=== PATIENT | female | born 1950 | race Caucasian/White ===

== ENCOUNTER 2017-05-22 02:15 | Observation (INO) | payer MEDICARE, BC, OTHER ==
[~2017-05-22] VITALS: Ht 167.6 cm; Wt 100.0 kg
[2017-05-22] VITALS (9 sets, daily range): BP systolic 126–195; BP diastolic 58–93; PULSE 74–115; RESP 16–21; TEMP 97.8–98.5; O2SAT 90–98
[~2017-05-22 02:15] MED LIST: ATEN-100 PO; CLON1 PO; SERT50 PO
[2017-05-22] MEDS ORDERED: ATEN25TA PO (02:41)
[2017-05-22] MEDS ORDERED: METF500T PO (02:41)
[2017-05-22] MEDS ORDERED: PRED10PA PO (02:41)
[2017-05-22] MEDS ORDERED: AUGM875T3 PO (02:41)
[2017-05-22] MEDS ORDERED: SODIUM CHLORID 0.9% 500 ML INJ 500 ML IV ONE (02:45)
[2017-05-22] MEDS ORDERED: NITROGLYCERIN 0.4 MG SL 25 TABS/BTL SL ONE (02:45)
[2017-05-22] MEDS ORDERED: SODIUM CHLORIDE 0.9% FLUSH 10 ML FLUSH IVF PRN (02:45)
[2017-05-22] MEDS ORDERED: ASPIRIN 81 MG CHEW TAB PO ONE (02:45)
--- NOTE | 2017-05-22 02:48 | PD ---
HPI Chief Complaint: Chest Pain Time Seen by Provider: 02:34 Travel History International Travel<30 days: No Contact w/Intl Traveler<30days: No Traveled to known affect area: No History of Present Illness HPI The patient is a 67-year-old female who presents to the emergency department for chest pain. The patient notes a three-week history of sinus infection, was treated with amoxicillin, however, continue to have facial pain, postnasal drip, congestion. The patient saw her physician once again who prescribed Augmentin and gave her an injection of Solu-Medrol place her on prednisone. The patient states the congestion got better, however, earlier tonight she developed chest pain. The chest pain is substernal, nonradiating, sharp to pressure related, and associated shortness of breath. The patient denies any known history of coronary artery disease, does have a history of atrial fibrillation but underwent cardiac ablation several years ago. The patient does have a history of diabetes and atrial fibrillation, however, denies any history of hypertension, hyperlipidemia, or tobacco use. Symptoms are moderate, there are no alleviating or exacerbating factors. She denies any associated nausea, vomiting, or diaphoresis. The patient denies any known history of pulmonary embolism or DVT. PFSH Past Medical History Atrial Fibrillation: Yes Cardiovascular Problems: Yes (A-FIB) Diabetes: Yes Patient Takes Glucophage: Yes Diminished Hearing: No GERD: Yes Tetanus Vaccination: > 5 Years Influenza Vaccination: No Ovarian Cysts: Yes (X1) Past Surgical History Cardiac Surgery: Yes (ABLASION) Section: Yes (X1) Genitourinary Surgery: Yes Other Surgery: Yes (DEVIATED SEPTUM ) Social History Alcohol Use: Yes Tobacco Use: No Substance Use: No Allergies-Medications (Allergen,Severity, Reaction): Coded Allergies: amiodarone (Unverified Allergy, Severe, 03/30/17) diatrizoate meglumine (Unverified Allergy, Severe, 03/30/17) flecainide (Unverified Allergy, Severe, 03/30/17) gadobenic acid (Unverified Allergy, Severe, 03/30/17) gadodiamide (Unverified Allergy, Severe, 03/30/17) gadoteridol (Unverified Allergy, Severe, 03/30/17) iodixanol (Unverified Allergy, Severe, 03/30/17) iohexol (Unverified Allergy, Severe, 03/30/17) Reported Meds & Prescriptions Reported Meds & Active Scripts Active Reported Prednisone (21) 10 mg tab Dose Pack (Prednisone) 10 Mg Pack 10 Mg PO DIRECTED Augmentin (Amoxicillin-Clavulanate) 875-125 Mg Tab 1 Tab PO BID Metformin (Metformin HCl) 500 Mg Tab 500 Mg PO BIDPC Atenolol 25 Mg Tab 25 Mg PO DAILY Review of Systems Except as stated in HPI: all other systems reviewed are Neg General / Constitutional: No: Fever HENT: No: Lightheadedness Cardiovascular: Positive: Chest Pain or Discomfort, No: Diaphoresis, Dyspnea on exertion Respiratory: Positive: Shortness of Breath Gastrointestinal: No: Nausea, Vomiting Musculoskeletal: No: Edema Physical Exam Narrative GENERAL: Awake, alert, pleasant 67-year-old female who appears her stated age and is in no acute respiratory distress. SKIN: Focused skin assessment warm/dry. HEAD: Atraumatic. Normocephalic. EYES: Pupils equal and round. No scleral icterus. No injection or drainage. ENT: No nasal bleeding or discharge. Cobblestoning noted in posterior oropharynx noted. NECK: Trachea midline. No JVD. CARDIOVASCULAR: Regular, tachycardic with a heart rate of 105. RESPIRATORY: No accessory muscle use. Clear to auscultation. Breath sounds equal bilaterally. GASTROINTESTINAL: Abdomen soft, non-tender, nondistended. MUSCULOSKELETAL: No obvious deformities. No clubbing. No cyanosis. No edema. NEUROLOGICAL: Awake and alert. No obvious cranial nerve deficits. Motor grossly within normal limits. Normal speech. PSYCHIATRIC: Appropriate mood and affect; insight and judgment normal. Data Data Last Documented VS Vital Signs Date Time Temp Pulse Resp B/P (MAP) Pulse Ox O2 Delivery O2 Flow Rate FiO2 05/22/17 03:14 94 16 143/67 (92) 92 Room Air 05/22/17 02:18 98.5 Orders Orders Electrocardiogram (05/22/17 02:44) Basic Metabolic Panel (Bmp) (05/22/17 02:44) Ckmb (Isoenzyme) Profile (05/22/17 02:44) Complete Blood Count With Diff (05/22/17 02:44) Magnesium (Mg) (05/22/17 02:44) Prothrombin Time / Inr (Pt) (05/22/17 02:44) Act Partial Throm Time (Ptt) (05/22/17 02:44) Troponin I (05/22/17 02:44) Chest, Single Ap (05/22/17 02:44) Ecg Monitoring (05/22/17 02:44) Bilateral Bp Monitoring (05/22/17 02:44) Iv Access Insert/Monitor (05/22/17 02:44) Oximetry (05/22/17 02:44) Oxygen Administration (05/22/17 02:44) Aspirin Chew (Aspirin Chew) (05/22/17 02:45) Sodium Chloride 0.9% Flush (Ns Flush) (05/22/17 02:45) Nitroglycerin Sl (Nitrostat Sl) (05/22/17 02:45) Sodium Chlorid 0.9% 500 Ml Inj (Ns 500 M (05/22/17 02:45) D-Dimer (05/22/17 02:48) Morphine Inj (Morphine Inj) (05/22/17 03:45) Ondansetron Inj (Zofran Inj) (05/22/17 03:45) Admit Order (Ed Use Only) (05/22/17 03:45) Labs Laboratory Tests Test 05/22/17 02:45 White Blood Count 8.2 TH/MM3 Red Blood Count 4.22 MIL/MM3 Hemoglobin 12.4 GM/DL Hematocrit 37.0 % Mean Corpuscular Volume 87.7 FL Mean Corpuscular Hemoglobin 29.4 PG Mean Corpuscular Hemoglobin Concent 33.5 % Red Cell Distribution Width 14.0 % Platelet Count 222 TH/MM3 Mean Platelet Volume 8.8 FL Neutrophils (%) (Auto) 82.7 % Lymphocytes (%) (Auto) 16.2 % Monocytes (%) (Auto) 0.9 % Eosinophils (%) (Auto) 0.1 % Basophils (%) (Auto) 0.1 % Neutrophils # (Auto) 6.8 TH/MM3 Lymphocytes # (Auto) 1.3 TH/MM3 Monocytes # (Auto) 0.1 TH/MM3 Eosinophils # (Auto) 0.0 TH/MM3 Basophils # (Auto) 0.0 TH/MM3 CBC Comment DIFF FINAL Differential Comment Prothrombin Time 10.3 SEC Prothromb Time International Ratio 0.9 RATIO Activated Partial Thromboplast Time 24.8 SEC D-Dimer Quantitative (PE/DVT) 0.47 MG/L FEU Blood Urea Nitrogen 22 MG/DL Creatinine 1.55 MG/DL Random Glucose 263 MG/DL Calcium Level 8.8 MG/DL Magnesium Level 2.0 MG/DL Sodium Level 138 MEQ/L Potassium Level 4.0 MEQ/L Chloride Level 102 MEQ/L Carbon Dioxide Level 26.7 MEQ/L Anion Gap 9 MEQ/L Estimat Glomerular Filtration Rate 34 ML/MIN Total Creatine Kinase 88 U/L Troponin I LESS THAN 0.02 NG/ML MDM Medical Decision Making Medical Screen Exam Complete: Yes Emergency Medical Condition: Yes Medical Record Reviewed: Yes Interpretation(s) EKG reveals sinus tachycardia with a heart rate of 101. Nonspecific ST depression. Chest x-rays unremarkable Laboratory Tests Test 05/22/17 02:45 White Blood Count 8.2 TH/MM3 Red Blood Count 4.22 MIL/MM3 Hemoglobin 12.4 GM/DL Hematocrit 37.0 % Mean Corpuscular Volume 87.7 FL Mean Corpuscular Hemoglobin 29.4 PG Mean Corpuscular Hemoglobin Concent 33.5 % Red Cell Distribution Width 14.0 % Platelet Count 222 TH/MM3 Mean Platelet Volume 8.8 FL Neutrophils (%) (Auto) 82.7 % Lymphocytes (%) (Auto) 16.2 % Monocytes (%) (Auto) 0.9 % Eosinophils (%) (Auto) 0.1 % Basophils (%) (Auto) 0.1 % Neutrophils # (Auto) 6.8 TH/MM3 Lymphocytes # (Auto) 1.3 TH/MM3 Monocytes # (Auto) 0.1 TH/MM3 Eosinophils # (Auto) 0.0 TH/MM3 Basophils # (Auto) 0.0 TH/MM3 CBC Comment DIFF FINAL Differential Comment Prothrombin Time 10.3 SEC Prothromb Time International Ratio 0.9 RATIO Activated Partial Thromboplast Time 24.8 SEC D-Dimer Quantitative (PE/DVT) 0.47 MG/L FEU Blood Urea Nitrogen 22 MG/DL Creatinine 1.55 MG/DL Random Glucose 263 MG/DL Calcium Level 8.8 MG/DL Magnesium Level 2.0 MG/DL Sodium Level 138 MEQ/L Potassium Level 4.0 MEQ/L Chloride Level 102 MEQ/L Carbon Dioxide Level 26.7 MEQ/L Anion Gap 9 MEQ/L Estimat Glomerular Filtration Rate 34 ML/MIN Total Creatine Kinase 88 U/L Troponin I LESS THAN 0.02 NG/ML Differential Diagnosis Differential diagnosis includes pulmonary embolism, acute coronary syndrome, GERD, esophageal spasm, medication side effect, pleural effusion, pneumonia, pericarditis. Narrative Course IV was established, labs are drawn and sent, and the patient was placed on cardiac telemetry monitoring and continuous pulse oximetry monitoring. EKG was ordered and interpreted. D-dimer was sent to lab as patient is allergic to IV contrast dye, to rule out pulmonary embolism. The patient was administered aspirin, nitroglycerin sublingual, and IV fluids. D-dimer is negative at 0.47, therefore, no indication for CT pulmonary angiogram. The patient's initial troponin is negative. 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 The patient is 67 with a previous history of atrial fibrillation, will be 23 hour observation to chest pain center for serial cardiac enzymes and further evaluation. The patient's chest pain may be related to ACS versus possible esophageal spasm and/or esophagitis. Physician Communication Physician Communication The patient will be 23 hour observation to the chest pain Center. Diagnosis Primary Impression: Chest pain Qualified Codes: R07.9 - Chest pain, unspecified Admitting Information Admitting Physician Requests: Observation Condition: Stable Stanford Falk MD May 22, 2017 02:48
[2017-05-22 03:12] LABS: APTT (PATIENT) 24.8 SEC (24.3-30.1); INTERNATIONAL NORMALIZED RATIO 0.9 RATIO; PROTHROMBIN TIME - PATIENT 10.3 SEC (9.8-11.6)
[2017-05-22 03:14] LABS: AUTOMATED NEUTROPHIL # 6.8 TH/MM3 (1.8-7.7); BASOPHIL % 0.1 % (0.0-2.0); EOSINOPHIL % 0.1 % (0.0-4.0); HEMO FLAGS DIFF FINAL; LYMPH % 16.2 % (9.0-44.0); LYMPHOCYTE # 1.3 TH/MM3 (1.0-4.8); MEAN CELL VOLUME 87.7 FL (80.0-100.0); MEAN CORPUSCULAR HEMOGLOBIN 29.4 PG (27.0-34.0); MEAN CORPUSCULAR HGB CONC 33.5 % (32.0-36.0); MONO % 0.9 % (0.0-8.0); NEUT % 82.7 % (16.0-70.0); PLATELET COUNT 222 TH/MM3 (150-450); RED BLOOD COUNT 4.22 MIL/MM3 (4.00-5.30); WHITE BLOOD COUNT 8.2 TH/MM3 (4.0-11.0)
--- NOTE | 2017-05-22 03:30 | RADRPT ---
EXAM DATE/TIME: 05/22/2017 02:53 [facility] COMPARISON: No previous studies available for comparison. INDICATIONS : Chest pain. MEDICAL HISTORY : Diabetes mellitus type II. Atrial fibrilation. SURGICAL HISTORY : None. ENCOUNTER: Initial ACUITY: 1 day PAIN SCORE: 8/10 LOCATION: Bilateral chest FINDINGS: A single view of the chest demonstrates the lungs to be symmetrically aerated without evidence of mas s, infiltrate or effusion. The cardiomediastinal contours are unremarkable. Osseous structures are intact. CONCLUSION: No acute disease. Allen Quigley Jr., MD on May 22, 2017 at 3:28 Board Certified Radiologist. This report was verified electronically.
[2017-05-22 03:33] LABS: ANION GAP 9 MEQ/L (5-15); BICARBONATE 26.7 MEQ/L (21.0-32.0); BLOOD UREA NITROGEN 22 MG/DL (7-18); CHLORIDE 102 MEQ/L (98-107); GLOMERULAR FILTRATION RATE 34 ML/MIN (>89); SODIUM (NA) 138 MEQ/L (136-145)
[2017-05-22 03:38] LABS: CREATINE KINASE 88 U/L (26-192)
[2017-05-22] MEDS ORDERED: ONDANSETRON HCL 4 MG/2 ML VIAL IV PUSH ONE (03:45)
[2017-05-22] MEDS ORDERED: MORPHINE SULFATE 4 MG/ML INJ IV PUSH ONE (03:45)
[2017-05-22] MEDS ORDERED: ACETAMINOPHEN/HYDROcodone 325 MG/7.5 MG TAB PO PRN (04:00)
[2017-05-22] MEDS ORDERED: ONDANSETRON HCL 4 MG/2 ML VIAL IV PUSH PRN (04:00)
[2017-05-22] MEDS ORDERED: SODIUM CHLORIDE 0.9% FLUSH 10 ML FLUSH IV FLUSH PRN (04:00)
[2017-05-22] MEDS ORDERED: ACETAMINOPHEN 500 MG CPLT PO PRN (04:00)
[2017-05-22] MEDS ORDERED: MORPHINE SULFATE 4 MG/ML INJ IV PUSH PRN (04:00)
--- NOTE | 2017-05-22 08:09 | HHI.HP ---
HPI Primary Care Physician Non-Staff Chief Complaint Chest pressure History of Present Illness 67-year-old female with history of A. fib, chronic sinus problems, and diabetes presents to emergency room for further evaluation chest pressure. Onset 1 AM. Location substernal and epigastric area described as a pressure. No radiation of pain. Duration constant. Associated symptoms included diaphoresis. Denied nausea, vomiting, or shortness of breath. No known precipitating or relieving factors. Deep breathing makes pain worse. No particular movement or position makes pain better or worse. Past 3 weeks she has had a sinus infection. Completed 14 of antibiotics followed by 3 doses of out of date antibiotics she had at home. Symptoms not improving therefore went to Urgent care. Urgent care prescribed her Augmentin, Prednisone dose pack, and a dose of Solu-Medrol. Review of Systems General: No fatigue,weakness, fever, chills, recent illness, or change in appetite. x3 weeks Sinus infection. HEENT: Intermittent HAYNES x3 weeks reports headache related to her sinuses. CV: As stated above. Continues to have chest pressure as stated above. RESP: No SOB, cough, sputum production, or history of asthma GI: No nausea or vomiting, bowel changes, diarrhea, constipation, pain, distention, melena, blood in the stool. No change in appetite, no unintentional weight gain or weight loss : No dysuria, urgency, or frequency EXT: No lower leg edema, no paraesthesias MS: No discomfort or change in ROM NEURO: No change in memory, dizziness, difficulty with balance, LOC, motor/ sensory deficits PSYCH: No anxiety or depression. SKIN: No rashes, no concerning lesions Past Family Social History Allergies: Coded Allergies: amiodarone (Unverified Allergy, Severe, 03/30/17) diatrizoate meglumine (Unverified Allergy, Severe, 03/30/17) flecainide (Unverified Allergy, Severe, 03/30/17) gadobenic acid (Unverified Allergy, Severe, 03/30/17) gadodiamide (Unverified Allergy, Severe, 03/30/17) gadoteridol (Unverified Allergy, Severe, 03/30/17) iodixanol (Unverified Allergy, Severe, 03/30/17) iohexol (Unverified Allergy, Severe, 03/30/17) Reported Medications Reported Meds & Active Scripts Active Reported Prednisone (21) 10 mg tab Dose Pack (Prednisone) 10 Mg Pack 10 Mg PO DIRECTED Augmentin (Amoxicillin-Clavulanate) 875-125 Mg Tab 1 Tab PO BID Metformin (Metformin HCl) 500 Mg Tab 500 Mg PO BIDPC Atenolol 25 Mg Tab 25 Mg PO DAILY Active Ordered Medications Current Medications Medications (Trade) Dose Ordered Sig/Elizabeth Route Start Time Stop Time Status Last Admin (NS Flush) 2 ml UNSCH PRN IV FLUSH 05/22/17 04:00 (NS Flush) 2 ml BID IV FLUSH 05/22/17 09:00 (Tylenol) 500 mg Q4H PRN PO 05/22/17 04:00 ([place] 7.5-325 Mg) 1 tab Q4H PRN PO 05/22/17 04:00 (Morphine Inj) 2 mg Q4H PRN IV PUSH 05/22/17 04:00 (Zofran Inj) 4 mg Q6H PRN IV PUSH 05/22/17 04:00 (Aspirin) 325 mg DAILY PO 05/22/17 09:00 Family History Mother CABG age 72 Social History Known diabetes and hyperlipidemia. Unable to take to statin therapy. No known hypertension. Lifelong nonsmoker. Denies any alcohol or illegal drug use. Endorses sedentary lifestyle. Past Cardiac Testing Remote chemical stress testing-unremarkable. Physical Exam Vital Signs Vital Signs Date Time Temp Pulse Resp B/P (MAP) Pulse Ox O2 Delivery O2 Flow Rate FiO2 05/22/17 05:19 95 05/22/17 04:59 97.8 74 19 169/77 (107) 95 05/22/17 04:35 71 20 142/64 (90) 92 05/22/17 04:02 81 16 171/83 (112) 96 Room Air 05/22/17 03:14 94 16 143/67 (92) 92 Room Air 05/22/17 02:36 100 16 177/76 (109) 98 Room Air 05/22/17 02:35 96 05/22/17 02:18 98.5 115 18 195/93 (127) 98 Room Air Laboratory Laboratory Tests Test 05/22/17 02:45 05/22/17 06:00 White Blood Count 8.2 Red Blood Count 4.22 Hemoglobin 12.4 Hematocrit 37.0 Mean Corpuscular Volume 87.7 Mean Corpuscular Hemoglobin 29.4 Mean Corpuscular Hemoglobin Concent 33.5 Red Cell Distribution Width 14.0 Platelet Count 222 Mean Platelet Volume 8.8 Neutrophils (%) (Auto) 82.7 Lymphocytes (%) (Auto) 16.2 Monocytes (%) (Auto) 0.9 Eosinophils (%) (Auto) 0.1 Basophils (%) (Auto) 0.1 Neutrophils # (Auto) 6.8 Lymphocytes # (Auto) 1.3 Monocytes # (Auto) 0.1 Eosinophils # (Auto) 0.0 Basophils # (Auto) 0.0 CBC Comment DIFF FINAL Differential Comment Prothrombin Time 10.3 Prothromb Time International Ratio 0.9 Activated Partial Thromboplast Time 24.8 D-Dimer Quantitative (PE/DVT) 0.47 Blood Urea Nitrogen 22 Creatinine 1.55 Random Glucose 263 Calcium Level 8.8 Magnesium Level 2.0 Sodium Level 138 Potassium Level 4.0 Chloride Level 102 Carbon Dioxide Level 26.7 Anion Gap 9 Estimat Glomerular Filtration Rate 34 Total Creatine Kinase 88 Troponin I LESS THAN 0.02 Result Diagram: 05/22/1724405/22/17244 Imaging Last Impressions Chest X-Ray 05/22/17243 Signed Impressions: Service Date/Time: Monday, May 22, 2017 02:53 - CONCLUSION: No acute disease. Allen Quigley Jr., MD Course EKG Normal stress testing, normal axis, no st t segment changes Caprini VTE Risk Assessment Caprini VTE Risk Assessment: No/Low Risk (score <= 1) Caprini Risk Assessment Model Point Value = 1 Point Value = 2 Point Value = 3 Point Value = 5 Age 41-60 Minor surgery BMI > 25 kg/m2 Swollen legs Varicose veins or History of unexplained or recurrent spontaneous Oral contraceptives or hormone replacement Sepsis (< 1 month) Serious lung disease, including pneumonia (< 1 month) Abnormal pulmonary function Acute myocardial infarction Congestive heart failure (< 1 month) History of inflammatory bowel disease Medical patient at bed rest Age 61-74 Arthroscopic surgery Major open surgery (> 45 min) Laparoscopic surgery (> 45 min) Malignancy Confined to bed (> 72 hours) Immobilizing plaster cast Central venous access Age >= 75 History of VTE Family history of VTE Factor V Leiden Prothrombin [id number] Lupus anticoagulant Anticardiolipin antibodies Elevated serum homocysteine Heparin-induced thrombocytopenia Other congenital or acquired thrombophilia Stroke (< 1 month) Elective arthroplasty Hip, pelvis, or leg fracture Acute spinal cord injury (< 1 month) Prophylaxis Regimen Total Risk Factor Score Risk Level Prophylaxis Regimen 0-1 Low Early ambulation 2 Moderate Order ONE of the following: *Sequential Compression Device (SCD) *Heparin 5000 units SQ BID 3-4 Higher Order ONE of the following medications: *Heparin 5000 units SQ TID *Enoxaparin/Lovenox 40 mg SQ daily (WT < 150 kg, CrCl > 30 mL/min) *Enoxaparin/Lovenox 30 mg SQ daily (WT < 150 kg, CrCl > 10-29 mL/min) *Enoxaparin/Lovenox 30 mg SQ BID (WT < 150 kg, CrCl > 30 mL/min) AND/OR *Sequential Compression Device (SCD) 5 or more Highest Order ONE of the following medications: *Heparin 5000 units SQ TID (Preferred with Epidurals) *Enoxaparin/Lovenox 40 mg SQ daily (WT < 150 kg, CrCl > 30 mL/min) *Enoxaparin/Lovenox 30 mg SQ daily (WT < 150 kg, CrCl > 10-29 mL/min) *Enoxaparin/Lovenox 30 mg SQ BID (WT < 150 kg, CrCl > 30 mL/min) AND *Sequential Compression Device (SCD) Assessment and Plan Assessment and Plan #1 Atypical Chest pain-admitted to chest pain. Ruled out with 3 sets of EKGs and cardiac enzymes. #2 Sinus infection-continue Augmentin and prednisone. Encouraged using Flonase in addition to antibiotics and prednisone. Follow up with ENT and PCP as previously instructed. #3 Renal insufficiency-discussed creatinine level in length with patient. Made her aware importance of tight blood pressure and blood glucose control in regards to kidney function. Recommended her following up with PCP for repeat kidney function labs. #4 Hypertension- #5 Hyperlipidemia-discussed other medications, besides statins, available to her and recommended she discusses other treatment options to treat her hyperlipidemia. #6 Diabetes-continue metformin, education on importance of tight blood glucose given, increase daily activity discussed [place] May 22, 2017 08:09
[2017-05-22] MEDS: ASPIRIN 325 MG TAB PO SCH ×2 (08:14→10:12)
[2017-05-22] MEDS ORDERED: KETOROLAC TROMETHAMINE 30 MG/ML (IVP) VIAL IV PUSH ONE (08:15)
[2017-05-22] MEDS ORDERED: NITROGLYCERIN 0.4 MG SL 25 TABS/BTL SL PRN (08:15)
[2017-05-22] MEDS ORDERED: amLODIPine BESYLATE 5 MG TAB PO ONE (08:30)
[2017-05-22] MEDS ORDERED: ALUMINUM/MAGNESIUM/SIMETH 30 ML CUP PO ONE (08:30)
[2017-05-22] MEDS ORDERED: SODIUM CHLORIDE 0.9% FLUSH 10 ML FLUSH IV FLUSH SCH (09:00)
[2017-05-22] MEDS ORDERED: RANITIDINE HCL SYRUP 150 MG/10 ML UDC PO ONE (09:30)
[2017-05-22 09:53] LABS: CREATINE KINASE 88 U/L (26-192)
--- NOTE | 2017-05-22 13:10 | HHI.DCPOC ---
Discharge Care Plan Diagnosis: (1) Musculoskeletal chest pain (2) Acute recurrent sinusitis, unspecified Goals to Promote Your Health * To prevent worsening of your condition and complications * To maintain your health at the optimal level Directions to Meet Your Goals Take your medications as prescribed Follow your dietary instruction Follow activity as directed Keep your appointments as scheduled Take your immunizations and boosters as scheduled If your symptoms worsen call your PCP, if no PCP go to Urgent Care Center or Emergency Room Smoking is Dangerous to Your Health. Avoid second hand smoke Call the 24-hour hour crisis hotline for domestic abuse at [facility] May 22, 2017 13:10
--- NOTE | 2017-05-22 13:16 | TR ---
Date Performed: 05/22/2017 Time Performed: 12:40:01 DOCTOR: Honorio Crisostomo DRUG LIST: CLINICAL HISTORY: CHEST PAIN R/O ACS REASON FOR TEST: CHEST PAIN RULE OUT ACUTE CORONARY SYNDROME REASON FOR ENDING: OBSERVATION: CONCLUSION: Demetrius protocol completed when target heart rate reached secondary to leg fatigure. N o reproducible chest discomfort or pain. No ST segment changes to indicate ischemia. Good exercise to lerance. Normal BP response. Recovery quick and unremarkable. Maximum LJ=789 Target RV=399 Maximum BP =190/76 Total Exercise Time=5:01 Target HR Achieved=97.0% COMMENTS: Conclusion: Normal treadmill exercise. No evidence of ischemia.
[2017-05-22] MEDS ORDERED: FLUT1SPR5 EACH NARE (13:24)
[2017-05-22] MEDS ORDERED: RANI150C PO (13:24)
--- NOTE | 2017-05-22 13:56 | EKG ---
Date Performed: 05/22/2017 Time Performed: 06:11:03 PTAGE: 67 years EKG: Sinus rhythm NORMAL ECG PREVIOUS TRACING : 11/13/2014 03.09 Since previous tracing, no significant change noted DOCTOR: Honorio Crisostomo Interpretating Date/Time 05/22/2017 13:55:24
--- NOTE | 2017-05-22 14:07 | EKG ---
Date Performed: 05/22/2017 Time Performed: 02:32:45 PTAGE: 67 years EKG: SINUS TACHYCARDIA ABNORMAL RHYTHM ECG INTERPRETATION BASED ON A DEFAULT AGE OF 40 YEARS PREVIOUS TRACING : 11/13/2014 03.09 Compared to previous tracing, atrial fib has converte d to Sinus rhythm . DOCTOR: Honorio Crisostomo Interpretating Date/Time 05/22/2017 14:07:35
--- NOTE | 2017-05-23 12:21 | EKG ---
Date Performed: 05/22/2017 Time Performed: 08:56:59 PTAGE: 67 years EKG: Sinus rhythm NORMAL ECG PREVIOUS TRACING : 05/22/2017 06.11 Since previous tracing, no significant change noted DOCTOR: Honorio Crisostomo Interpretating Date/Time 05/23/2017 12:21:05
== END 2017-05-22 14:47 | disposition home or self-care (01) ==
LOC: NEPE 02:15 → NEDA 03:47 → NEPHCDU 04:31
DX: R07.89 Other chest pain (principal); J01.91 Acute recurrent sinusitis, unspecified; I10 Essential (primary) hypertension; E78.5 Hyperlipidemia, unspecified; E11.9 Type 2 diabetes mellitus without complications; I48.91 Unspecified atrial fibrillation; N28.9 Disorder of kidney and ureter, unspecified
CPT/HCPCS: 71010; 80048; 82550; 83735; 84484; 85025; 85379; 85610; 85730; 93005; 93017; 96361; 96374; 96375; 99285; G0378; J1885; J2270; J2405; J7040